=== PATIENT | male | born 1970 | race Caucasian/White ===

== ENCOUNTER → 2023-07-26 | Outpatient (CLI) | payer OTHER ==
--- NOTE | 2023-07-26 09:21 | CTL ---
EXAMINATION TYPE: CT Low Dose Lung DATE OF EXAM ORDERED: 07/26/2023 HISTORY: 53-year-old male Z87.891, personal history of nicotine dependence. Lung cancer screening. Cu rrent smoker with 34 pack-year history. CT DLP: 109.[address] CTDI: 2.70 mGy Automated exposure control for dose reduction was used. SCREENING VISIT: Baseline COMPARISON: None TECHNIQUE: Low dose computed tomography scan was performed through the chest with coronal and sagitta l reconstructions. CT DIAGNOSTIC QUALITY: Satisfactory FINDINGS: Heart normal size without pericardial effusion. Aorta normal caliber with conventional arch vessel branching anatomy. No thoracic lymphadenopathy by CT size criteria. Mild diffuse bronchial wall thickening. Minimal upper lung emphysematous change. Minimal biapical ple ural parenchymal scarring. No consolidation or pleural effusion. No suspicious pulmonary nodules are seen. Visualized upper abdomen shows no gross abnormality. Bones: No osseous destructive process. IMPRESSION: 1. Lung rads 1, negative. No suspicious pulmonary nodules. 2. COPD with minimal emphysema. Recommend smoking cessation. CT LUNG RAD AND CT CHEST RECOMMENDATION: Lung-Rad 1 Negative: Continue annual screening with LDCT in 12 months. S Modifier (other clinically significant findings): None
== END | disposition home or self-care (01) ==
LOC: RADCTMAIN 06:10
PROVIDERS: ATTEND Family Medicine
DX: Z12.2 Encounter for screening for malignant neoplasm of respiratory organs (principal); J43.9 Emphysema, unspecified; J44.9 Chronic obstructive pulmonary disease, unspecified; F17.210 Nicotine dependence, cigarettes, uncomplicated
CPT/HCPCS: 71271

== ENCOUNTER → 2023-11-13 | Outpatient (CLI) | payer OTHER ==
--- NOTE | 2023-11-13 14:56 | XR ---
EXAMINATION TYPE: XR foot complete RT DATE OF EXAM: 11/13/2023 CLINICAL HISTORY: pain TECHNIQUE: Frontal, lateral and oblique images of the right foot are obtained. COMPARISON: None. FINDINGS: There is no acute fracture/dislocation evident. Healed fracture fifth metatarsal. The join t spaces appear within normal limits. The overlying soft tissue appears unremarkable. IMPRESSION: There is no acute fracture or dislocation. ICD 10 NO FRACTURE, INITIAL EVALUATION
== END | disposition home or self-care (01) ==
LOC: RADXRYALE 14:39
PROVIDERS: ATTEND Physician Assistant
DX: M79.671 Pain in right foot (principal)